=== PATIENT | female | born 1940 | race Caucasian/White ===

== ENCOUNTER → 2020-01-09 | Outpatient (CLI) | payer MEDICARE, OTHER ==
[~2020-01-09] MED LIST: ALPR1TAB6 PO; AMAN100C7 PO; CARB1TAB2 PO; LEVO75TA5 PO; OXYB5TAB10 PO
[2020-01-09 11:45] LABS: BASOPHILS # (AUTO) 0.04 x10^3/uL (0-0.1); BASOPHILS % (AUTO) 1 % (0-1); EOSINOPHILS # (AUTO) 0.29 x10^3/uL (0-0.4); EOSINOPHILS % (AUTO) 4 % (1-7); LYMPHOCYTES # (AUTO) 1.71 x10^3/uL (1-3.4); LYMPHOCYTES % (AUTO) 24 % (22-44); MD NO; MEAN CORPUSCULAR HEMOGLOBIN 32.1 pg (27.0-34.8); MEAN CORPUSCULAR VOLUME 97.1 fL (80-100); MEAN PLATELET VOLUME 8.7 fL (7.4-10.4); MONOCYTES # (AUTO) 0.46 x10^3/uL (0.2-0.8); MONOCYTES % (AUTO) 6 % (2-9); NEUTROPHILS # (AUTO) 4.71 x10^3/uL (1.8-6.8); NEUTROPHILS % (AUTO) 65 % (42-75); PLATELET COUNT 210 x10^3/uL (130-400); RED BLOOD COUNT 4.36 x10^6/uL (3.82-5.3); RED CELL DISTRIBUTION WIDTH 13.2 % (9.6-15.2)
[2020-01-09 11:54] LABS: ALBUMIN 3.8 g/dL (3.4-5.0); ANION GAP 6 mmol/L (5-15); CHLORIDE 107 mmol/L (98-107); INTERNATIONAL NORMALIZED RATIO 0.99 (0.93-1.1); PROTHROMBIN TIME 10.5 Seconds (9.6-11.5)
[2020-01-09 11:58] LABS: ALANINE AMINOTRANSFERASE 9 U/L (12-78); ALKALINE PHOSPHATASE 58 U/L (45-117); BILIRUBIN,TOTAL 0.7 mg/dL (0.2-1.0); CREATININE 0.99 mg/dL (0.55-1.02); TOTAL PROTEIN 7.2 g/dL (6.4-8.2)
== END | disposition home or self-care (01) ==
LOC: STAR 10:18
PROVIDERS: ATTEND Neurological Surgery
DX: Z01.818 Encounter for other preprocedural examination (principal); G20 Parkinson's disease
CPT/HCPCS: 36415; 80053; 85025; 85610; 85730; 93005

== ENCOUNTER 2020-01-10 07:04 | Day surgery (SDC) | payer MEDICARE, OTHER ==
[~2020-01-10] VITALS: Ht 162.6 cm; Wt 57.1 kg
[2020-01-10] MEDS ORDERED: LACTATED RINGERS 1,000 ML IV SCH (07:41)
[2020-01-10 07:42] VITALS: BP 128/80
[2020-01-10] MEDS ORDERED: CHLORHEXIDINE 15 ML UDC MM ONE (08:00)
[2020-01-10] MEDS ORDERED: PLEASE ENTER HEIGHT AND WEIGHT MC SCH (08:00)
[2020-01-10] MEDS ORDERED: PROPOFOL 10 MG/ML, 50ML ONE (08:55)
[2020-01-10] MEDS ORDERED: ONDANSETRON 2MG/ML, 2ML IVPush PRN (09:00)
[2020-01-10] MEDS ORDERED: GADOTERATE 7.5 MMOL/15 ML SYR ONE (09:43)
== END 2020-01-10 11:45 | disposition home or self-care (01) ==
LOC: RAD 07:04 → EDSTATUS 09:00 → OUT 11:45
PROVIDERS: ATTEND Neurological Surgery
DX: G20 Parkinson's disease (principal); J32.9 Chronic sinusitis, unspecified; G31.9 Degenerative disease of nervous system, unspecified; E03.9 Hypothyroidism, unspecified; J45.909 Unspecified asthma, uncomplicated; M81.0 Age-related osteoporosis without current pathological fracture; M19.90 Unspecified osteoarthritis, unspecified site; Z79.890 Hormone replacement therapy; Z79.899 Other long term (current) drug therapy; Z90.49 Acquired absence of other specified parts of digestive tract; Z98.890 Other specified postprocedural states; Z82.61 Family history of arthritis; Z83.3 Family history of diabetes mellitus
CPT/HCPCS: 70553; A9575; J2704; J7120

== ENCOUNTER 2020-02-06 08:57 | Day surgery (SDC) | payer MEDICARE, OTHER ==
[2020-01-18 06:34] LABS: MEAN CORPUSCULAR HEMOGLOBIN 32.1 pg (27.0-34.8); MEAN CORPUSCULAR HGB CONC 32.5 g/dL (32.4-35.8); MEAN CORPUSCULAR VOLUME 98.8 fL (80-100); MEAN PLATELET VOLUME 9.1 fL (7.4-10.4); PLATELET COUNT 199 x10^3/uL (130-400); RED BLOOD COUNT 4.38 x10^6/uL (3.82-5.3); RED CELL DISTRIBUTION WIDTH 13.3 % (9.6-15.2)
[2020-01-18 06:59] LABS: BASOPHILS % (AUTO) 0 % (0-1); EOSINOPHILS % (AUTO) 0 % (1-7); LYMPHOCYTES # (AUTO) 0.71 x10^3/uL (1-3.4); LYMPHOCYTES % (AUTO) 5 % (22-44); MD SCAN; MONOCYTES # (AUTO) 0.88 x10^3/uL (0.2-0.8); MONOCYTES % (AUTO) 7 % (2-9); NEUTROPHILS % (AUTO) 88 % (42-75)
[~2020-02-06] VITALS: Ht 162.6 cm; Wt 56.9 kg
[~2020-02-06 08:57] MED LIST changes: +ACETAMINOPHEN 325 MG TABLET PO PRN; +ACETAMINOPHEN 650 MG/20.3 ML UDC PO PRN; +ALPRazolam 1MG TAB PO PRN; +AMANTADINE 100 MG CAPSULE PO SCH; +CALC-545 PO; +CARB1TAB43 PO; +CARBIDOPA/LEVODOPA 25 MG/100 MG TABLET PO SCH; +CARBIDOPA/LEVODOPA CR 25 MG/100 MG TABLET PO SCH; +CEFAZOLIN PMX 1GM/50ML 50 ML IVPB SCH; +CHOL-6 PO; +CYAN-27 PO; +ESMOLOL/NS PMX 250 ML IV PRN; +FLUT9.9S NAS; +HYDROcodone/APAP 5/325 TABLET PO PRN; +LEVO100T5 PO; +LEVOTHYROXINE 100 MCG TABLET PO SCH; +MAGN250T8 PO; +MELA3TAB31 PO; +ONDANSETRON 2MG/ML, 2ML IV PRN; +OXYBUTYNIN CHLORIDE 5 MG TABLET PO SCH; +OXYcodone/APAP 5/325MG TABLET PO PRN; +ROTI1PAT4 TD; +SUMA100T4 PO; +SUMATRIPTAN 100 MG TABLET PO PRN; +TIZA2TAB4 PO; +morphine SULFATE 10 MG/ML, 1ML IV PRN
[2020-02-06 09:21] VITALS: BP 152/75
[2020-02-06] MEDS ORDERED: LACTATED RINGERS 1,000 ML IV SCH (09:21)
[2020-02-06] MEDS ORDERED: CHLORHEXIDINE 15 ML UDC MM ONE (09:30)
[2020-02-06] MEDS ORDERED: BUPIVACAINE/PF-EPI 0.5% 1:200K ONE (11:44)
[2020-02-06] MEDS ORDERED: BACITRACIN OINT 500U/GM, 15 GM ONE (11:45)
[2020-02-06] MEDS ORDERED: BACITRACIN 50,000 UNIT ONE (11:45)
[2020-02-06] MEDS ORDERED: FENTANYL PF 100 MCG/2ML ONE ×2 (13:08→14:20)
[2020-02-06] MEDS ORDERED: PROPOFOL 50 ML ONE (13:15)
[2020-02-06] MEDS ORDERED: LIDOCAINE-MPF 1%, 2ML ONE (13:17)
[2020-02-06] MEDS ORDERED: TIZANIDINE HCL PO PRN (13:30)
[2020-02-06] MEDS ORDERED: HYDROmorphone 1 MG/ML, 1ML INJ IVPush PRN (14:00)
[2020-02-06] MEDS ORDERED: ACETAMINOPHEN 325 MG TABLET PO PRN (14:00)
[2020-02-06] MEDS ORDERED: FENTANYL PF 100 MCG/2ML IV PRN (14:00)
[2020-02-06] MEDS ORDERED: LABETALOL 5MG/ML, 20ML IV PRN (14:00)
[2020-02-06] MEDS ORDERED: OXYcodone 5 MG/5 ML ORAL.SOL UDC PO PRN (14:00)
[2020-02-06] MEDS ORDERED: ONDANSETRON 2MG/ML, 2ML IVPush PRN (14:00)
[2020-02-06] MEDS ORDERED: hydrALAzine 20 MG/ML, 1ML IV PRN (14:00)
[2020-02-06] MEDS ORDERED: ONDANSETRON 2MG/ML, 2ML ONE (14:12)
[2020-02-06] MEDS ORDERED: CEFAZOLIN 1,000 MG ONE (14:12)
[2020-02-06] MEDS ORDERED: DEXAMETHASONE 4 MG/ML, 1ML ONE (14:12)
[2020-02-06] MEDS ORDERED: PROPOFOL 10 MG/ML, 20ML ONE (14:12)
[2020-02-06] MEDS ORDERED: MEPERIDINE/PF 25MG/ML,1ML ONE (15:09)
[2020-02-06] MEDS ORDERED: MELATONIN 3 MG TABLET PO SCH (21:00)
[2020-02-07] MEDS ORDERED: CALCIUM CARBONATE PO SCH (09:00)
[2020-02-07] MEDS ORDERED: MAGNESIUM OXIDE 250 MG PO SCH (09:00)
[2020-02-07] MEDS ORDERED: CHOLECALCIFEROL 250 MCG PO SCH (09:00)
[2020-02-07] MEDS ORDERED: [UNRECOGNIZED DRUG - REMARK] NAS SCH (09:00)
[2020-02-07] MEDS ORDERED: CYANOCOBALAMIN 1,000 MCG TABLET PO SCH (09:00)
[2020-02-07] MEDS ORDERED: [UNRECOGNIZED DRUG - OTHER] PO SCH (09:00)
[2020-02-07] MEDS ORDERED: VITAMIN D3 PO SCH (09:00)
[2020-02-07] MEDS ORDERED: ROTIGOTINE TD SCH (09:00)
== END 2020-02-06 17:10 | disposition home or self-care (01) ==
LOC: OUT 08:57
PROVIDERS: ATTEND Neurological Surgery
DX: G20 Parkinson's disease (principal); Z20.828 Contact with and (suspected) exposure to other viral communicable diseases; I10 Essential (primary) hypertension; J45.909 Unspecified asthma, uncomplicated; M19.90 Unspecified osteoarthritis, unspecified site; M81.0 Age-related osteoporosis without current pathological fracture; Z79.890 Hormone replacement therapy; Z79.899 Other long term (current) drug therapy; Z90.49 Acquired absence of other specified parts of digestive tract; Z98.890 Other specified postprocedural states; Z82.61 Family history of arthritis; Z82.49 Family history of ischemic heart disease and other diseases of the circulatory system; Z83.3 Family history of diabetes mellitus
CPT/HCPCS: 36415; 61886; 87635; C1767; C1883; J0690; J1100; J2405; J2704; J3010; J7120; 85025